=== PATIENT | female | born 2000 | race Caucasian/White ===

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

== ENCOUNTER → 2025-01-19 | Outpatient (CLI) | payer OTHER ==
[2025-01-19 18:01] LABS: PLATELET COUNT, AUTOMATED 380 10^3/uL (150-450)
[2025-01-19 18:27] LABS: HIV 1&2 SCREEN NEGATIVE (NEGATIVE)
[2025-01-19 18:36] LABS: HEPATITIS C VIRUS ABY INDEX < 0.02 INDEX (<0.8)
[2025-01-19 19:59] LABS: Trichomonas vaginalis (AMP) NOT DETECTED (NEGATIVE)
[2025-01-19 20:22] LABS: GC DNA AMPLIFICATION NEGATIVE (NEGATIVE)
== END ==
LOC: M PLALAB 15:22
PROVIDERS: ATTEND Advanced Practice Midwife
DX: Z34.02 Encounter for supervision of normal first pregnancy, second trimester (principal)

== ENCOUNTER → 2025-01-19 | Outpatient (CLI) | payer OTHER | LOC: M WHC 15:04 | PROVIDERS: ATTEND Advanced Practice Midwife | DX: Z34.02 Encounter for supervision of normal first pregnancy, second trimester (principal); Z53.9 Procedure and treatment not carried out, unspecified reason ==

== ENCOUNTER 2025-02-17 09:10 | Emergency (ER) | payer OTHER ==
[~2025-02-17] VITALS: Ht 162.6 cm; Wt 68.1 kg
[2025-02-17] MEDS ORDERED: MULTTAB20 PO (09:16)
[2025-02-17] MEDS ORDERED: HOME MED LIST COMPLETE! XX SCH (10:00)
[2025-02-17 10:12] LABS: BASO # 0.1 10^3/uL (0.0-0.2); BASO % 0.5 % (0.0-1.0); EOS # 0.1 10^3/uL (0.0-0.5); EOS % 0.6 % (0.0-3.0); LYMPH # 2.1 10^3/uL (1.5-5.0); LYMPH % 18.3 % (24.0-44.0); MONO # 0.5 10^3/uL (0.0-0.8); MONO % 4.5 % (2.0-8.0); NEUTROPHILS # 8.6 10^3/uL (1.5-8.5); NEUTROPHILS % 75.8 % (36.0-66.0); PLATELET COUNT, AUTOMATED 319 10^3/uL (150-450)
[2025-02-17 10:24] LABS: INR 0.87
[2025-02-17 10:39] LABS: ALT/SGPT 16 U/L (7.0-40); AST/SGOT 22 U/L (<34); CALCIUM LEVEL 9.2 MG/DL (8.5-10.1); CARBON DIOXIDE LEVEL 24 MMOL/L (20-31); CHLORIDE LEVEL 105 MMOL/L (98-107); CREATININE FOR GFR 0.59 MG/DL (0.55-1.30); GLOMERULAR FILTRATION RATE > 90.0 (>60); POTASSIUM SERUM 3.8 MMOL/L (3.5-5.1); SODIUM LEVEL 140 MMOL/L (136-145)
[2025-02-17 11:01] VITALS: TEMP 97
[2025-02-17] MEDS ORDERED: ONDA-282 PO (11:39)
[2025-02-17] MEDS ORDERED: OMEP-173 PO (11:39)
[2025-02-17 11:45] VITALS: BP 111/55; O2SAT 99
[2025-02-17] MEDS: OMEPRAZOLE 20MG CAP PO ONE (11:56)
[2025-02-17] MEDS: ONDANSETRON 4MG 2ML VIAL IV ONE (11:56)
== END 2025-02-17 12:07 | disposition home or self-care (01) ==
LOC: M ED 09:10
DX: O21.9 Vomiting of pregnancy, unspecified (principal); O99.330 Smoking (tobacco) complicating pregnancy, unspecified trimester
CPT/HCPCS: 80053; 85025; 85610; 85730; 86850; 86900; 86901; 93005; 93041; 96374; 99285; J2405

== ENCOUNTER → 2025-02-17 | Outpatient (REF) | payer OTHER ==
[~2025-02-17] MED LIST: MULTTAB20 PO; OMEP-173 PO; ONDA-282 PO
[2025-02-17 12:36] LABS: Trichomonas vaginalis (AMP) NOT DETECTED (NEGATIVE)
[2025-02-17 12:59] LABS: GC DNA AMPLIFICATION NEGATIVE (NEGATIVE)
== END ==
LOC: M SFHCWAGY 10:23
PROVIDERS: ATTEND Obstetrics & Gynecology
DX: Z34.80 Encounter for supervision of other normal pregnancy, unspecified trimester (principal)

== ENCOUNTER → 2025-02-18 | Outpatient (CLI) | payer OTHER | LOC: M WHC 06:45 | PROVIDERS: ATTEND Advanced Practice Midwife | DX: Z34.02 Encounter for supervision of normal first pregnancy, second trimester (principal) ==

== ENCOUNTER → 2025-03-21 | Outpatient (CLI) | payer OTHER ==
[2025-03-21 14:17] LABS: PLATELET COUNT, AUTOMATED 327 10^3/uL (150-450)
[2025-03-21 14:48] LABS: GLUCOSE CHALLENGE TEST 1 HOUR 89 MG/DL (LESS THAN 140)
[2025-03-21 15:12] LABS: Trichomonas vaginalis (AMP) NOT DETECTED (NEGATIVE)
[2025-03-21 15:14] LABS: HIV 1&2 SCREEN NEGATIVE (NEGATIVE)
[2025-03-21 15:21] LABS: HEPATITIS C VIRUS ABY INDEX 0.02 INDEX (<0.8)
[2025-03-21 15:36] LABS: GC DNA AMPLIFICATION NEGATIVE (NEGATIVE)
== END ==
LOC: M PLALAB 09:08
PROVIDERS: ATTEND Advanced Practice Midwife
DX: Z33.1 Pregnant state, incidental (principal)

== ENCOUNTER 2025-06-01 23:15 | Inpatient (IN) | payer OTHER ==
[~2025-06-01] VITALS: Ht 162.6 cm; Wt 78.8 kg
[2025-06-01 23:31] VITALS: BP 133/78
[2025-06-02] VITALS (54 sets, daily range): BP systolic 99–173; BP diastolic 53–119; O2SAT 98
[2025-06-02] MEDS ORDERED: TRANEXAMIC ACID INJection 1,000 MG in NS 100 ML IV PRN (00:30)
[2025-06-02] MEDS ORDERED: METHYLERGONOVINE MALEATE 0.2 MG/ML 1 ML VIAL IM PRN (00:30)
[2025-06-02] MEDS ORDERED: OXYTOCIN INJ 10UNITS/ML 1ML VIAL IM PRN (00:30)
[2025-06-02] MEDS ORDERED: CARBOPROST TROMETHAMINE 250 MCG/ML AMP IM PRN (00:30)
[2025-06-02] MEDS ORDERED: OXYTOCIN DRIP 30 UNITS in IV 1 EA IV PRN (00:30)
[2025-06-02] MEDS ORDERED: LIDOCAINE 1% MDV 20 ML VIAL INFIL PRN (00:30)
[2025-06-02 00:56] LABS: PLATELET COUNT, AUTOMATED 325 10^3/uL (150-450)
[2025-06-02] MEDS: BETAMETHASONE SOLUSPAN 6 MG/ML 5 ML VIAL IM SCH (01:38)
[2025-06-02] MEDS: PENICILLIN G POTASSIUM 5 MU IV 5 MU in DEXTROSE 5% (D5W) MINI-BAG PLU 100 ML IV STA (01:38)
[2025-06-02] MEDS: LR 1,000 ML IV SCH (01:38)
[2025-06-02] MEDS: OXYTOCIN DRIP 30 UNITS in IV 1 EA IV SCH (01:39)
[2025-06-02 01:52] LABS: HIV 1&2 SCREEN NEGATIVE (NEGATIVE)
[2025-06-02 02:00] LABS: HEPATITIS C VIRUS ABY INDEX < 0.02 INDEX (<0.8)
[2025-06-02] MEDS: PEN G POT 3,000,000 UNIT/50 ML 3,000,000 UNIT in IV 1 EA IV SCH (05:54)
[2025-06-02] MEDS ORDERED: NALOXONE INJ 0.4 MG/1 ML VIAL IV PRN (10:05)
[2025-06-02] MEDS ORDERED: diphenhydrAMINE 50 MG/ML VIAL IV PRN (10:05)
[2025-06-02] MEDS ORDERED: EPIDURAL/PCA KEYS XX PRN (10:05)
[2025-06-02] MEDS ORDERED: LR 500 ML IV PRN (10:05)
[2025-06-02] MEDS ORDERED: ONDANSETRON 4MG/2ML VIAL IV PRN (10:05)
[2025-06-02] MEDS: LR 1,000 ML IV ONE (10:06)
[2025-06-02] MEDS: FENTANYL/ROPIVACAINE/NACL BAG 100 ML EPIDURAL SCH (10:38)
[2025-06-02 12:46] LABS: CORD GAS ABE V -3.2; CORD GAS HCO3 V 21.0 MMOL/L; CORD GAS O2 SAT V 79.9 %; CORD GAS PCO2 V 35.5 mmHg; CORD GAS PH V 7.389 UNITS; CORD GAS PO2 V 33.4 mmHg; CORD GAS SBC V 21.4 MMOL/L; CORD GAS TCO2 V 22.0 MMOL/L
[2025-06-02 12:47] LABS: CORD GAS ABE A -7.1; CORD GAS HCO3 A 21.8 MMOL/L; CORD GAS O2 SAT A 28.9 %; CORD GAS PCO2 A 57.4 mmHg; CORD GAS PH A 7.198 UNITS; CORD GAS PO2 A 16.3 mmHg; CORD GAS SBC A 17.2 MMOL/L; CORD GAS TCO2 A 23.6 MMOL/L
[2025-06-02] MEDS ORDERED: IBUPROFEN 600 MG TAB PO PRN (13:55)
[2025-06-02] MEDS ORDERED: RHOGAM 300MCG (1500IU) INJ IM SCH (13:55)
[2025-06-02] MEDS ORDERED: DOCUSATE SODIUM 100 MG CAPSULE PO PRN (13:55)
[2025-06-02] MEDS ORDERED: ANUSOL HC CREAM 30 GM TOP PRN (13:55)
[2025-06-02] MEDS ORDERED: IBUPROFEN 800 MG TAB PO PRN (13:55)
[2025-06-02] MEDS ORDERED: ACETAMINOPHEN 500 MG TAB PO PRN (13:55)
[2025-06-02] MEDS ORDERED: ACETAMINOPHEN 325 MG TAB PO PRN (13:55)
[2025-06-02] MEDS ORDERED: METHYLERGONOVINE MALEATE 0.2 MG TAB PO PRN (13:55)
[2025-06-03 05:48] VITALS: BP 119/61; O2SAT 98
[2025-06-03] MEDS: PRENATAL VITAMINS CHEWABLE TABLET PO SCH (08:00)
[2025-06-03] MEDS: DIBUCAINE 1% OINTMENT 30 GM TOP PRN (08:00)
[2025-06-03 08:02] LABS: PLATELET COUNT, AUTOMATED 345 10^3/uL (150-450)
[2025-06-04] MEDS ORDERED: MEASLES,MUMPS,RUBELLA VACCINE INJ (MMR-II) SC.IMMUN ONE (09:00)
== END 2025-06-03 13:40 | disposition home or self-care (01) | DRG 560 ==
LOC: M LDO 23:15 → M LDI 06-02 → M OBS 06-02 14:25
PROVIDERS: ADMIT Advanced Practice Midwife; ATTEND Obstetrics & Gynecology
PROC: 10E0XZZ Delivery of Products of Conception, External Approach (ICD-10-PCS; principal; 2025-06-02)
PROC: 0UQMXZZ Repair Vulva, External Approach (ICD-10-PCS; 2025-06-02)
DX: O42.013 Preterm premature rupture of membranes, onset of labor within 24 hours of rupture, third trimester (principal); O69.81X0 Labor and delivery complicated by cord around neck, without compression, not applicable or unspecified; Z3A.35 35 weeks gestation of pregnancy; Z37.0 Single live birth; O71.82 Other specified trauma to perineum and vulva